=== PATIENT | male | born 1975 | race Caucasian/White ===

== ENCOUNTER 2017-05-01 23:02 | Emergency (ER) | payer SELFPAY ==
[~2017-05-01] VITALS: Ht 166.4 cm; Wt 78.0 kg
[2017-05-01 23:03] VITALS: BP 112/66; PULSE 116; RESP 18; TEMP 97.9; O2SAT 97
[2017-05-02] MEDS ORDERED: DICL75TA PO (00:15)
[2017-05-02] MEDS ORDERED: CYCL10TA PO (00:15)
[2017-05-02] MEDS ORDERED: NORC5TAB PO (00:15)
[2017-05-02] MEDS ORDERED: DEXAMETHASONE SOD PHOS 20 MG/5 ML VIAL IM ONE (00:30)
[2017-05-02] MEDS ORDERED: ACETAMINOPHEN/HYDROcodone 325 MG/5 MG TAB PO ONE (00:30)
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
[2017-05-02 00:40] VITALS: BP 108/57; PULSE 89; RESP 20; O2SAT 97
== END 2017-05-02 00:53 | disposition home or self-care (01) ==
LOC: NEPD 23:02
DX: M54.40 Lumbago with sciatica, unspecified side (principal); Z72.0 Tobacco use
CPT/HCPCS: 96372; 99284; J1100

== ENCOUNTER 2017-07-19 07:40 | Emergency (ER) | payer SELFPAY ==
[~2017-07-19] VITALS: Ht 167.6 cm; Wt 78.0 kg
[~2017-07-19 07:40] MED LIST: CYCL10TA PO; DICL75TA PO; NORC5TAB PO
[2017-07-19 07:43] VITALS: BP 126/63; PULSE 90; RESP 16; TEMP 97.2; O2SAT 100
[2017-07-19 08:23] VITALS: BP 120/70; PULSE 80; RESP 17; TEMP 97.6; O2SAT 98
[2017-07-19] MEDS ORDERED: MEDR4PAK PO (08:43)
[2017-07-19] MEDS ORDERED: DICL75TA PO (08:43)
--- NOTE | 2017-07-19 08:43 | PD ---
HPI Chief Complaint: Edema Time Seen by Provider: 08:17 Travel History International Travel<30 days: No Contact w/Intl Traveler<30days: No Traveled to known affect area: No History of Present Illness HPI 42-year-old male presents to the emergency department with complaint of bilateral feet pain and swelling times a couple weeks. Denies injury. Feet swelling is worse in the mornings and better throughout the day. Pain is worse in the mornings and better throughout the day also. Reports pain is worse to the right fifth and fourth toes. Left foot pain is all over. Denies paresthesias, loss of sensation, decreased range of motion, decreased strength to bilateral lower extremities. Denies fever, vomiting. Ambulatory with a normal gait. Rates pain 9/10. Worse in the mornings and while at work. Has tried BC powder, Tylenol, ibuprofen, and warm water soaks with some relief of symptoms. Described as shooting and throbbing pain. No known allergies. No primary care provider. Denies significant past medical history. Has no other medical complaints. No other modifying factors or associated signs and symptoms. PFSH Past Medical History Medical History: Denies Significant Hx Tetanus Vaccination: < 5 Years Influenza Vaccination: Yes Past Surgical History Surgical History: No Previous Surgery Social History Alcohol Use: Yes (OCC) Tobacco Use: Yes Substance Use: Yes (OCC MARIJUANA) Allergies-Medications (Allergen,Severity, Reaction): Coded Allergies: No Known Allergies (Unverified , 07/19/17) Reported Meds & Prescriptions Reported Meds & Active Scripts Active Medrol Dosepak (Methylprednisolone) 4 Mg Dspk 4 Mg PO DIRECTED Per Pharmacist direction Diclofenac Sodium DR (Diclofenac Sodium) 75 Mg Tabdr 75 Mg PO BID Review of Systems Except as stated in HPI: all other systems reviewed are Neg Physical Exam Narrative GENERAL: Well-nourished, well-developed male patient, in no acute distress SKIN: Warm and dry. HEAD: Atraumatic. Normocephalic. EYES: Pupils equal and round. No scleral icterus. No injection or drainage. ENT: Mucosa pink and moist. Airway patent. NECK: Trachea midline. CARDIOVASCULAR: Regular rate. RESPIRATORY: No accessory muscle use. GASTROINTESTINAL: Flat. MUSCULOSKELETAL: Bilateral lower extremities are supple and nontender with 2+ pedal pulses and sensory intact without erythema or edema; no foot edema, erythema, ecchymosis; no obvious deformity; no ankle edema or tenderness on palpation of bilateral ankle; tenderness on palpation to right fourth and fifth toes; tenderness on palpation to both feet all over on exam; no open wounds or sores noted; multiple calluses noted to bilateral feet. no obvious deformities. No clubbing. No cyanosis. No edema. NEUROLOGICAL: Awake and alert. Oriented 3. No obvious cranial nerve deficits. Motor grossly within normal limits. Normal speech. PSYCHIATRIC: Appropriate mood and affect; insight and judgment normal. Data Data Last Documented VS Vital Signs Date Time Temp Pulse Resp B/P (MAP) Pulse Ox O2 Delivery O2 Flow Rate FiO2 07/19/17 08:54 97.6 80 17 120/70 (87) 98 07/19/17 08:25 Room Air Orders Orders Ed Discharge Order (07/19/17 08:43) [facility] Medical Decision Making Medical Screen Exam Complete: Yes Emergency Medical Condition: Yes Medical Record Reviewed: Yes Differential Diagnosis Plantar fasciitis, bone spur, calluses Narrative Course 42-year-old male with bilateral foot pain and swelling for the past couple weeks. No injury. There is no swelling noted to bilateral feet or ankles at this time. I do not suspect fracture, dislocation feel that imaging is not necessary at this time. Medrol Dosepak and diclofenac prescribed for home. Instructed patient to follow-up with podiatry as needed. Instructed patient to follow up with primary care provider. Patient verbalizes understanding and agreement with treatment plan. Patient is medically cleared and stable for discharge. Discussed reasons to return to the emergency department. Patient agrees with treatment plan. The patients vital signs are stable and the patient is stable for outpatient follow-up and treatment. Patient discharged home, stable and in no acute distress. Diagnosis Primary Impression: Bilateral foot pain Referrals: [facility] Nurse Primary Care Physician Patient Instructions: General Instructions, Plantar Fasciitis (ED) Departure Forms: Tests/Procedures, Work Release Enter return to work date: Jul 20, 2017 Additional Instructions: Tylenol or ibuprofen as directed and as needed for pain Avoid the use of flat shoes and barefoot walking Use heel shoe inserts or arch supports and/or heel cups as needed Decrease physical activity that causes aggravation of pain Follow-up with podiatry Follow-up with primary care Return to the emergency department immediately with worsening of symptoms Med/Other Pt SpecificInfo: Prescription(s) given Scripts Methylprednisolone Dosepak (Medrol Dosepak) 4 Mg Dspk 4 MG PO DIRECTED, #1 DSPK 0 Refills Per Pharmacist direction Prov: Qiana Harvey 07/19/[address] (Diclofenac Sodium DR) 75 Mg Tabdr 75 MG PO BID, #20 TAB 0 Refills Prov: Qiana Harvey 07/19/17 Disposition: 01 DISCHARGE HOME Condition: Stable Qiana Harvey Jul 19, 2017 08:43
[2017-07-19 08:54] VITALS: BP 120/70; TEMP 97.6
== END 2017-07-19 08:59 | disposition home or self-care (01) ==
LOC: NEPD 07:40
DX: M79.672 Pain in left foot (principal); M79.671 Pain in right foot; F12.90 Cannabis use, unspecified, uncomplicated; Z72.0 Tobacco use
CPT/HCPCS: 99283

== ENCOUNTER 2017-09-14 14:23 | Emergency (ER) | payer SELFPAY ==
[~2017-09-14] VITALS: Ht 167.6 cm; Wt 73.2 kg
[~2017-09-14 14:23] MED LIST changes: -CYCL10TA PO; +MEDR4PAK PO; -NORC5TAB PO
[2017-09-14 14:40] VITALS: BP 114/62; PULSE 100; RESP 16; TEMP 99; O2SAT 97
[2017-09-14] MEDS ORDERED: KETOROLAC TROMETHAMINE 60 MG/2 ML (IM) VIAL IM ONE (15:00)
[2017-09-14] MEDS ORDERED: CYCL10TA PO (15:22)
[2017-09-14] MEDS ORDERED: IBUP1TAB7 PO (15:22)
--- NOTE | 2017-09-14 15:23 | PD ---
HPI Chief Complaint: Back/ Neck Pain or Injury Time Seen by Provider: 14:51 Travel History International Travel<30 days: No Contact w/Intl Traveler<30days: No Traveled to known affect area: No History of Present Illness HPI 42-year-old male here with left-sided neck pain and muscle spasm for several days. He reports similar pain in the past. He denies injury or trauma. He reports he woke with what he believed was a stiff neck. He denies fever, headache, paresthesia or weakness of the upper extremities. No chest pain or shortness of breath. No history of IVDA. He has not attempted any medications. Pain is reproducible to palpation of the left trapezius muscle and range of motion of the shoulder. Relieved with rest. PFSH Past Medical History Medical History: Denies Significant Hx Diminished Hearing: No Tetanus Vaccination: Unknown Past Surgical History Surgical History: No Previous Surgery Social History Alcohol Use: Yes ([facility]) Tobacco Use: Yes Substance Use: Yes ([facility] MARIJUANA) Allergies-Medications (Allergen,Severity, Reaction): Coded Allergies: No Known Allergies (Unverified , 09/14/17) Reported Meds & Prescriptions Reported Meds & Active Scripts Active No Active Prescriptions or Reported Medications Review of Systems Except as stated in HPI: all other systems reviewed are Neg General / Constitutional: No: Fever Eyes: No: Visual changes HENT: No: Headaches Cardiovascular: No: Chest Pain or Discomfort Respiratory: No: Shortness of Breath Gastrointestinal: No: Abdominal Pain Genitourinary: No: Dysuria Physical Exam Narrative GENERAL: Alert and well-appearing 42-year-old male SKIN: Warm and dry. HEAD: Normocephalic. Atraumatic EYES: No scleral icterus. No injection or drainage. NECK: Supple, trachea midline. No lymphadenopathy. No cervical midline tenderness.+ Tenderness to the left trapezius muscle with muscle spasm. Full range of motion of the neck. No meningismus. CARDIOVASCULAR: Regular rate and rhythm without murmurs, gallops, or rubs. RESPIRATORY: Breath sounds equal bilaterally. No accessory muscle use. GASTROINTESTINAL: Abdomen soft, non-tender, nondistended. MUSCULOSKELETAL: No cyanosis, or edema. Normal strength and sensation in extremities. Equal hand grasp. BACK: Nontender without obvious deformity. No CVA tenderness. Data Data Last Documented VS Vital Signs Date Time Temp Pulse Resp B/P (MAP) Pulse Ox O2 Delivery O2 Flow Rate FiO2 09/14/17 14:40 99.0 100 16 114/62 (79) 97 Orders Orders Ketorolac Inj (Toradol Inj) (09/14/17 15:00) [facility] Medical Decision Making Medical Screen Exam Complete: Yes Emergency Medical Condition: Yes Differential Diagnosis Trapezius muscle spasm, neck strain, cervical radiculopathy Narrative Course 42-year-old male here with left trapezius muscle spasm. He has a normal neurologic exam. He is well-appearing. He was given a shot of Toradol reports symptom improvement. He is stable and ready for discharge. Diagnosis Primary Impression: Trapezius muscle strain Qualified Codes: S46.812A - Strain of other muscles, fascia and tendons at shoulder and upper arm level, left arm, initial encounter Referrals: Primary Care Physician Departure Forms: Tests/Procedures, Work Release Enter return to work date: Sep 15, 2017 Additional Instructions: Medication as directed. Ice and/or heat as directed. Perform light stretches. Scripts Cyclobenzaprine (Flexeril) 10 Mg Tab 10 MG PO TID for Muscle Spasm, #10 TAB 0 Refills Prov: Patricia Jang 09/14/17 Ibuprofen (Ibuprofen) 800 Mg Tab 800 MG PO Q6HR Y for PAIN, #40 TAB 0 Refills Prov: Patricia Jang 09/14/17 Disposition: 01 DISCHARGE HOME Condition: Stable Patricia Jang Sep 14, 2017 15:23
== END 2017-09-14 15:45 | disposition home or self-care (01) ==
LOC: PHEFT 14:23
DX: S46.812A Strain of other muscles, fascia and tendons at shoulder and upper arm level, left arm, initial encounter (principal); F12.90 Cannabis use, unspecified, uncomplicated; X58.XXXA Exposure to other specified factors, initial encounter; Z72.0 Tobacco use
CPT/HCPCS: 96372; 99283; J1885